=== PATIENT | female | born 1980 ===

== ENCOUNTER 2019-01-08 17:11 | Emergency (ER) | payer SELFPAY ==
--- NOTE | 2019-01-08 17:34 | Emergency Department Report ---
Blank Doc - Documentation Documentation: 38-year-old female that presents with n/v, weakness, and headache. Denies any abdominal pain. Denies worst headaches or thunderclarp headaches. This initial assessment/diagnostic orders/clinical plan/treatment(s) is/are subject to change based on patient's health status, clinical progression and re- assessment by fellow clinical providers in the ED. Further treatment and workup at subsequent clinical providers discretion. Patient/guardians urged not to elope from the ED as their condition may be serious if not clinically assessed and managed. Initial orders include: 1- Patient sent to [facility] for further evaluation and treatment 2- labs 3- UA
[2019-01-08 18:19] LABS: Bacteria,Urine 1+ /HPF (Negative); Bilirubin,Urine NEG (Negative); Blood,Urine NEG (Negative); Color,Urine Yellow (Yellow); Mucus,Urine FEW /HPF; Protein,Urine <15 mg/dL mg/dL (Negative); Urobilinogen,Urine < 2.0 mg/dL (<2.0)
[2019-01-08 19:08] LABS: Alanine Aminotransferase 20 units/L (7-56); Albumin 4.6 g/dL (3.9-5); BUN/Creatinine Ratio 26; Blood Urea Nitrogen 13 mg/dL (7-17); Calcium 9.1 mg/dL (8.4-10.2); Hemolysis Index 9
[2019-01-08 19:11] LABS: Basophils % (Auto) 0.4 % (0.0-1.8); Eosinophils % (Auto) 0.5 % (0.0-4.3); Hematocrit 38.6 % (30.3-42.9); Hemoglobin 12.9 gm/dl (10.1-14.3); Lymphocytes # (Auto) 1.9 K/mm3 (1.2-5.4); Lymphocytes % (Auto) 27.1 % (13.4-35.0); Mean Corpuscular HGB Conc 33 % (30-34); Mean Corpuscular Volume 92 fl (79-97); Monocytes # (Auto) 0.4 K/mm3 (0.0-0.8); Monocytes % (Auto) 5.9 % (0.0-7.3); Platelet Count 286 K/mm3 (140-440); Red Cell Distribution Width 14.2 % (13.2-15.2)
[2019-01-08] MEDS ORDERED: ZOFRAN ODT PO ONE (19:56)
[2019-01-08] MEDS ORDERED: NACL 0.9% 1000 ML 1,000 ML IV ONE ×2 (20:02→20:57)
[2019-01-08] MEDS ORDERED: ZOFRAN IV ONE (20:06)
--- NOTE | 2019-01-08 20:45 | Emergency Department Report ---
ED General Adult HPI - General Chief complaint: Abdominal Pain Stated complaint: VOMITING Time Seen by Provider: 01/08/19 17:31 Source: patient Mode of arrival: Ambulatory Limitations: No Limitations - History of Present Illness Initial comments: Patient is a 38-year-old female presents emergency room with complaints of nausea and vomiting that began last week. She has associated headache, Lightheadedness, urinary frequency, odor to her urine. she states she has chest pressure but denies any CP. the patient denies any fever, diarrhea, abdominal pa in, dysuria, vaginal discharge. She is Able to tolerate by mouth intake. She has a past surgical history of cholecystectomy. She denies any allergies medications. patient states her last mental cycle December 27. pt states that her only medical history is high cholesterol and was just started on medication three days ago. she denies any other medication, denies taking anyone else medications, denies herbs or supplements. she denies any issues with her thyroid. - Related Data Previous Rx's Medication Instructions Recorded Last Taken Type cephALEXin [Keflex] 500 mg PO BID 7 Days #14 capsule 01/09/19 Unknown Rx Allergies Allergy/AdvReac Type Severity Reaction Status Date / Time No Known Allergies Allergy Unverified 01/08/19 17:38 ED Review of Systems ROS: Stated complaint: VOMITING Other details as noted in HPI Comment: All other systems reviewed and negative ED Past Medical Hx - Past Medical History Previous Medical History?: No - Surgical History Past Surgical History?: No - Social History Smoking Status: Never Smoker Substance Use Type: None - Medications Home Medications: Home Medications Medication Instructions Recorded Confirmed Last Taken Type cephALEXin [Keflex] 500 mg PO BID 7 Days #14 capsule 01/09/19 Unknown Rx ED Physical Exam - General Limitations: No Limitations General appearance: alert, in no apparent distress - Head Head exam: Present: atraumatic, normocephalic - Eye Eye exam: Present: normal appearance, PERRL, EOMI - ENT ENT exam: Present: mucous membranes moist - Respiratory Respiratory exam: Present: normal lung sounds bilaterally. Absent: respiratory distress, wheezes, rales, rhonchi, stridor, chest wall tenderness, accessory muscle use, decreased breath sounds, prolonged expiratory - Cardiovascular Cardiovascular Exam: Present: regular rate, normal rhythm, normal heart sounds. Absent: systolic murmur, diastolic murmur, rubs, gallop - GI/Abdominal GI/Abdominal exam: Present: soft, normal bowel sounds. Absent: distended, tenderness, guarding, rebound, rigid - Back Exam Back exam: Absent: CVA tenderness (R), CVA tenderness (L) - Neurological Exam Neurological exam: Present: alert, oriented X3, CN II-XII intact, normal gait. Absent: motor sensory deficit - Psychiatric Psychiatric exam: Present: normal affect, normal mood - Skin Skin exam: Present: warm, dry, intact ED Course Vital Signs 01/08/19 01/08/19 01/08/19 17:36 20:03 20:44 Temperature 97.9 F 98.5 F Pulse Rate 48 L 49 L 44 L Respiratory 18 16 15 Rate Blood Pressure 105/97 Blood Pressure 89/46 [Right] O2 Sat by Pulse 99 100 Oximetry 01/08/19 01/08/19 01/08/19 20:46 21:00 21:16 Temperature Pulse Rate 40 L 43 L 40 L Respiratory 13 11 L 13 Rate Blood Pressure 101/55 92/49 Blood Pressure [Right] O2 Sat by Pulse 99 100 100 Oximetry 01/08/19 01/08/19 01/08/19 21:57 22:00 22:16 Temperature Pulse Rate 37 L 37 L 39 L Respiratory 11 L 9 L 11 L Rate Blood Pressure 101/55 101/55 100/52 Blood Pressure [Right] O2 Sat by Pulse 100 100 100 Oximetry 01/08/19 01/08/19 01/08/19 22:30 22:46 23:00 Temperature Pulse Rate 39 L 38 L 41 L Respiratory 9 L 11 L 13 Rate Blood Pressure 100/52 100/52 100/52 Blood Pressure [Right] O2 Sat by Pulse 100 100 100 Oximetry 01/08/19 01/08/19 01/08/19 23:15 23:16 23:31 Temperature Pulse Rate 38 L 39 L 51 L Respiratory 9 L 10 L 15 Rate Blood Pressure 111/67 110/68 110/68 Blood Pressure [Right] O2 Sat by Pulse 99 100 100 Oximetry 01/08/19 01/09/19 01/09/19 23:45 00:00 00:15 Temperature Pulse Rate 39 L 37 L 40 L Respiratory 13 9 L 10 L Rate Blood Pressure 107/64 113/65 106/60 Blood Pressure [Right] O2 Sat by Pulse 100 100 99 Oximetry 01/09/19 01/09/19 00:30 00:45 Temperature Pulse Rate 42 L 39 L Respiratory 10 L 11 L Rate Blood Pressure 108/58 107/59 Blood Pressure [Right] O2 Sat by Pulse 99 99 Oximetry - Reevaluation(s) Reevaluation #1: 01/09/19 00:38 pt states she feels much, much better - Consultations Consultation #1: 01/09/19 00:[address] Ross Vasquez, cardiology regarding pt and asymptomatic bradycardia who states pt can follow up as an outpatient in clinic ED Medical Decision Making - Lab Data Result diagrams: 01/08/19 18:28 01/08/19 18:27 Lab Results 01/08/19 01/08/19 01/08/19 Range/Units 18:27 18:28 18:28 WBC 6.8 (4.5-11.0) K/mm3 RBC 4.20 (3.65-5.03) M/mm3 Hgb 12.9 (10.1-14.3) gm/dl Hct 38.6 (30.3-42.9) % MCV 92 (79-97) fl MCH 31 (28-32) pg MCHC 33 (30-34) % RDW 14.2 (13.2-15.2) % Plt Count 286 (140-440) K/mm3 Lymph % (Auto) 27.1 (13.4-35.0) % Bailey % (Auto) 5.9 (0.0-7.3) % Eos % (Auto) 0.5 (0.0-4.3) % Baso % (Auto) 0.4 (0.0-1.8) % Lymph # 1.9 (1.2-5.4) K/mm3 Bailey # 0.4 (0.0-0.8) K/mm3 Eos # 0.0 (0.0-0.4) K/mm3 Baso # 0.0 (0.0-0.1) K/mm3 Seg Neutrophils % 66.1 (40.0-70.0) % Seg Neutrophils # 4.5 (1.8-7.7) K/mm3 Sodium 138 (137-145) mmol/L Potassium 4.6 (3.6-5.0) mmol/L Chloride 101.8 (98-107) mmol/L Carbon Dioxide 23 (22-30) mmol/L Anion Gap 18 mmol/L BUN 13 (7-17) mg/dL Creatinine 0.5 L (0.7-1.2) mg/dL Estimated GFR > 60 ml/min BUN/Creatinine Ratio 26 % Glucose 113 H (65-100) mg/dL Calcium 9.1 (8.4-10.2) mg/dL Magnesium (1.7-2.3) mg/dL Total Bilirubin 0.40 (0.1-1.2) mg/dL AST 18 (5-40) units/L ALT 20 (7-56) units/L Alkaline Phosphatase 66 (35-129) units/L Total Creatine Kinase (30-135) units/L Troponin T (0.00-0.029) ng/mL Total Protein 7.6 (6.3-8.2) g/dL Albumin 4.6 (3.9-5) g/dL Albumin/Globulin Ratio 1.5 % Lipase 8 L (13-60) units/L TSH (0.270-4.200) mlU/mL Free T4 (0.76-1.46) ng/dL HCG, Qual Negative (Negative) Urine Color (Yellow) Urine Turbidity (Clear) Urine pH (5.0-7.0) Ur Specific Grimes (1.003-1.030) Urine Protein (Negative) mg/dL Urine Glucose (UA) (Negative) mg/dL Urine Ketones (Negative) mg/dL Urine Blood (Negative) Urine Nitrite (Negative) Urine Bilirubin (Negative) Urine Urobilinogen (<2.0) mg/dL Ur Leukocyte Esterase (Negative) Urine WBC (Auto) (0.0-6.0) /HPF Urine RBC (Auto) (0.0-6.0) /HPF U Epithel Cells (Auto) (0-13.0) /HPF Urine Bacteria (Auto) (Negative) /HPF Urine Mucus /HPF 01/08/19 01/08/19 01/08/19 Range/Units 18:28 20:56 21:04 WBC (4.5-11.0) K/mm3 RBC (3.65-5.03) M/mm3 Hgb (10.1-14.3) gm/dl Hct (30.3-42.9) % MCV (79-97) fl MCH (28-32) pg MCHC (30-34) % RDW (13.2-15.2) % Plt Count (140-440) K/mm3 Lymph % (Auto) (13.4-35.0) % Bailey % (Auto) (0.0-7.3) % Eos % (Auto) (0.0-4.3) % Baso % (Auto) (0.0-1.8) % Lymph # (1.2-5.4) K/mm3 Bailey # (0.0-0.8) K/mm3 Eos # (0.0-0.4) K/mm3 Baso # (0.0-0.1) K/mm3 Seg Neutrophils % (40.0-70.0) % Seg Neutrophils # (1.8-7.7) K/mm3 Sodium (137-145) mmol/L Potassium (3.6-5.0) mmol/L Chloride (98-107) mmol/L Carbon Dioxide (22-30) mmol/L Anion Gap mmol/L BUN (7-17) mg/dL Creatinine (0.7-1.2) mg/dL Estimated GFR ml/min BUN/Creatinine Ratio % Glucose (65-100) mg/dL Calcium (8.4-10.2) mg/dL Magnesium 2.30 (1.7-2.3) mg/dL Total Bilirubin (0.1-1.2) mg/dL AST (5-40) units/L ALT (7-56) units/L Alkaline Phosphatase (35-129) units/L Total Creatine Kinase (30-135) units/L Troponin T < 0.010 (0.00-0.029) ng/mL Total Protein (6.3-8.2) g/dL Albumin (3.9-5) g/dL Albumin/Globulin Ratio % Lipase (13-60) units/L TSH 0.857 (0.270-4.200) mlU/mL Free T4 0.96 (0.76-1.46) ng/dL HCG, Qual (Negative) Urine Color (Yellow) Urine Turbidity (Clear) Urine pH (5.0-7.0) Ur Specific Grimes (1.003-1.030) Urine Protein (Negative) mg/dL Urine Glucose (UA) (Negative) mg/dL Urine Ketones (Negative) mg/dL Urine Blood (Negative) Urine Nitrite (Negative) Urine Bilirubin (Negative) Urine Urobilinogen (<2.0) mg/dL Ur Leukocyte Esterase (Negative) Urine WBC (Auto) (0.0-6.0) /HPF Urine RBC (Auto) (0.0-6.0) /HPF U Epithel Cells (Auto) (0-13.0) /HPF Urine Bacteria (Auto) (Negative) /HPF Urine Mucus /HPF 01/08/19 01/08/19 Range/Units 21:10 Unknown WBC (4.5-11.0) K/mm3 RBC (3.65-5.03) M/mm3 Hgb (10.1-14.3) gm/dl Hct (30.3-42.9) % MCV (79-97) fl MCH (28-32) pg MCHC (30-34) % RDW (13.2-15.2) % Plt Count (140-440) K/mm3 Lymph % (Auto) (13.4-35.0) % Bailey % (Auto) (0.0-7.3) % Eos % (Auto) (0.0-4.3) % Baso % (Auto) (0.0-1.8) % Lymph # (1.2-5.4) K/mm3 Bailey # (0.0-0.8) K/mm3 Eos # (0.0-0.4) K/mm3 Baso # (0.0-0.1) K/mm3 Seg Neutrophils % (40.0-70.0) % Seg Neutrophils # (1.8-7.7) K/mm3 Sodium (137-145) mmol/L Potassium (3.6-5.0) mmol/L Chloride (98-107) mmol/L Carbon Dioxide (22-30) mmol/L Anion Gap mmol/L BUN (7-17) mg/dL Creatinine (0.7-1.2) mg/dL Estimated GFR ml/min BUN/Creatinine Ratio % Glucose (65-100) mg/dL Calcium (8.4-10.2) mg/dL Magnesium (1.7-2.3) mg/dL Total Bilirubin (0.1-1.2) mg/dL AST (5-40) units/L ALT (7-56) units/L Alkaline Phosphatase (35-129) units/L Total Creatine Kinase 68 (30-135) units/L Troponin T (0.00-0.029) ng/mL Total Protein (6.3-8.2) g/dL Albumin (3.9-5) g/dL Albumin/Globulin Ratio % Lipase (13-60) units/L TSH (0.270-4.200) mlU/mL Free T4 (0.76-1.46) ng/dL HCG, Qual (Negative) Urine Color Yellow (Yellow) Urine Turbidity Slightly-cloudy (Clear) Urine pH 7.0 (5.0-7.0) Ur Specific Grimes 1.015 (1.003-1.030) Urine Protein <15 mg/dl (Negative) mg/dL Urine Glucose (UA) Neg (Negative) mg/dL Urine Ketones Neg (Negative) mg/dL Urine Blood Neg (Negative) Urine Nitrite Pos (Negative) Urine Bilirubin Neg (Negative) Urine Urobilinogen < 2.0 (<2.0) mg/dL Ur Leukocyte Esterase Sm (Negative) Urine WBC (Auto) 4.0 (0.0-6.0) /HPF Urine RBC (Auto) 1.0 (0.0-6.0) /HPF U Epithel Cells (Auto) 12.0 (0-13.0) /HPF Urine Bacteria (Auto) 1+ (Negative) /HPF Urine Mucus Few /HPF - EKG Data EKG shows normal: sinus rhythm, axis, intervals, QRS complexes Rate: bradycardia - EKG Data 01/09/19 00:09 non specific T wave inversion V1, V2, aVL no STEMI - Radiology Data Radiology results: report reviewed CHEST 2 VIEWS INDICATION / CLINICAL INFORMATION: bradycardia, chest pressure. COMPARISON: None available. FINDINGS: SUPPORT DEVICES: None. HEART / MEDIASTINUM: No significant abnormality. LUNGS / PLEURA: No significant pulmonary or pleural abnormality. No pneumothorax. ADDITIONAL FINDINGS: No significant additional findings. IMPRESSION: 1. No acute findings. Signer Name: Jamal White MD Signed: 01/08/2019 9:58 PM Workstation Name: [id number] Transcribed By: ALEE Dictated By: Jamal White MD Electronically Authenticated By: Jamal White MD Signed Date/Time: 10/2157 - Medical Decision Making Patient is a 38-year-old female presents emergency room with complaints of nausea and vomiting that began last week. She has associated headache, Lightheadedness, urinary frequency, odor to her urine. she states she has chest pressure but denies any CP. the patient denies any fever, diarrhea, abdominal pain, dysuria, vaginal discharge. She is Able to tolerate by mouth intake. She has a past surgical history of cholecystectomy. She denies any allergies medications. patient states her last mental cycle December 27. pt states that her only medical history is high cholesterol and was just started on medication three days ago. she denies any other medication, denies taking anyone else medications, denies herbs or supplements. she denies any issues with her thyroid. vitals with bradycardia and hypotension, pt given 2L of NS and blood pressure improved to normal. labs are normal, electrolytes are normal, thyroid p micaela is normal. UA shows nitrites, leukocyte esterase, and 1+ WBC, pt given 1gram of ceftriaxone. hcg is negative. EKG with non specific T wave inversion V1, V2, aVL, no STEMI, bradycardia. no signs of heart block on EKG. pt states she feels much better. pt has no more N/V. pt was walked around the emergency department and had no dizziness/lightheadedness. Spoke with Dr. Ross Vasquez, cardiology regarding pt and asymptomatic bradycardia who states pt can follow up as an outpatient in clinic. pt given prescription for keflex. advised pt to please take medication as prescribed to completion. please increase your water intake over the next several days. Follow-up with a online merchandising specialist and a primary care doctor in the next 2-3 days. Return to the emergency room immediately for any new or worsening symptoms. Lan security used for turkmen translation for history and physical language line used for turkmen translation to discuss results and to psychosocial rehabilitation counselor patient - Differential Diagnosis arrhythmia, heart block, thyroid dz, SSS, electrolyte disturbance, UTI Critical care attestation.: If time is entered above; I have spent that time in minutes in the direct care of this critically ill patient, excluding procedure time. ED Disposition Clinical Impression: Lightheadedness, Bradycardia Nausea & vomiting Qualifiers: Vomiting type: unspecified Vomiting Intractability: non-intractable Qualified Code(s): R11.2 - Nausea with vomiting, unspecified UTI (urinary tract infection) Qualifiers: Urinary tract infection type: acute cystitis Hematuria presence: without hematuria Qualified Code(s): N30.00 - Acute cystitis without hematuria Disposition: TO HOME OR SELFCARE Is pt being admited?: No Does the pt Need Aspirin: No Condition: Stable Instructions: Urinary Tract Infection in Women (ED), Bradycardia (ED), Lightheadedness (ED) Additional Instructions: Please take medication as prescribed to completion. please increase your water intake over the next several days. Follow-up with a online merchandising specialist and a primary care doctor in the next 2-3 days. Return to the emergency room immediately for any new or worsening symptoms. Por favor tome la medicacin segn lo prescrito para completar aumente dorsey consumo de agua nick los prximos leahy. Nilsa un seguimiento con un cardilogo y un mdico de atencin primaria en los prximos 2-3 leahy. Regrese a la shiva de emergencias de inmediato por cualquier sntoma nuevo o que empeore. Prescriptions: cephALEXin [Keflex] 500 mg PO BID 7 Days #14 capsule Referrals: NATE VASQUEZ MD [Staff Physician] - 2-3 Days PRIMARY CARE, [Primary Care Provider] - 2-3 Days Time of Disposition: 00:41 Print Language: SYRIAC
[2019-01-08] MEDS ORDERED: ROCEPHIN/NS 1 GM/50 ML 1 GM/50 ML BAG IV ONE (20:53)
[2019-01-08 22:02] LABS: Free T4 (Free Thyroxine) 0.96 ng/dL (0.76-1.46)
--- NOTE | 2019-01-08 22:03 | XRay Report ---
CHEST 2 VIEWS INDICATION / CLINICAL INFORMATION: bradycardia, chest pressure. COMPARISON: None available. FINDINGS: SUPPORT DEVICES: None. HEART / MEDIASTINUM: No significant abnormality. LUNGS / PLEURA: No significant pulmonary or pleural abnormality. No pneumothorax. ADDITIONAL FINDINGS: No significant additional findings. IMPRESSION: 1. No acute findings. Signer Name: Jamal White MD Signed: 01/08/2019 9:58 PM Workstation Name: [id number]
[2019-01-09 00:52] VITALS: BP 107/59
== END 2019-01-09 00:57 | disposition home or self-care (01) ==
LOC: ED 17:11
DX: N39.0 Urinary tract infection, site not specified (principal); R11.2 Nausea with vomiting, unspecified; R00.1 Bradycardia, unspecified; Z79.899 Other long term (current) drug therapy
CPT/HCPCS: 36415; 71046; 80053; 81001; 82550; 83690; 83735; 84439; 84443; 84484; 84703; 85025; 93005; 93010; 96365; 96375; 99284; J0696; J2405; J7030

== ENCOUNTER 2019-10-30 13:53 | Emergency (ER) | payer SELFPAY ==
[2019-10-30 14:02] VITALS: BP 122/82
--- NOTE | 2019-10-30 15:10 | Emergency Department Report ---
ED General Adult HPI - General Chief complaint: Fever Stated complaint: SIDE PAIN, THROAT PAIN Time Seen by Provider: 10/30/19 15:09 Source: patient Mode of arrival: Ambulatory Limitations: Language Barrier - History of Present Illness Initial comments: 39-year-old female patient presents with complaints of body aches and chills starting 6 days ago and sore throat x3 days ago. She denies any cough, vomiting, chest pain, shortness of breath, rash, or diarrhea. Patient also denies any known sick contacts. She rates her current throat pain as a 6/10 in severity and states it is mildly improving since its onset. She denies any significant past medical history. - Related Data Previous Rx's Medication Instructions Recorded Last Taken Type cephALEXin [Keflex] 500 mg PO BID 7 Days #14 capsule 01/09/19 Unknown Rx Ondansetron [Zofran Odt] 4 mg PO Q8HR PRN #12 tab.rapdis 10/30/19 Unknown Rx Allergies Allergy/AdvReac Type Severity Reaction Status Date / Time No Known Allergies Allergy Verified 10/30/19 13:54 ED Review of Systems ROS: Stated complaint: SIDE PAIN, THROAT PAIN Other details as noted in HPI Constitutional: chills, fever (Tactile), malaise. denies: diaphoresis, weakness ENT: throat pain Respiratory: denies: cough, shortness of breath Cardiovascular: denies: chest pain Gastrointestinal: nausea. denies: abdominal pain, vomiting, diarrhea, constipation Genitourinary: denies: urgency, dysuria, frequency, hematuria Musculoskeletal: denies: back pain Skin: denies: rash, lesions Neurological: denies: headache, weakness ED Past Medical Hx - Past Medical History Previous Medical History?: No - Surgical History Past Surgical History?: No - Social History Smoking Status: Never Smoker Substance Use Type: None - Medications Home Medications: Home Medications Medication Instructions Recorded Confirmed Last Taken Type cephALEXin [Keflex] 500 mg PO BID 7 Days #14 capsule 01/09/19 Unknown Rx Ondansetron [Zofran Odt] 4 mg PO Q8HR PRN #12 tab.rapdis 10/30/19 Unknown Rx ED Physical Exam - General Limitations: Language Barrier General appearance: alert, in no apparent distress - Head Head exam: Present: atraumatic, normocephalic - Eye Eye exam: Present: normal appearance - ENT ENT exam: Present: normal orophraynx, mucous membranes moist - Expanded ENT Exam Expanded Mouth exam: Present: tongue normal. Absent: drooling, trismus, muffled voice Throat exam: Negative: tonsillar erythema, tonsillomegaly - Neck Neck exam: Present: full ROM, lymphadenopathy (Mild submandibular/anterior tenderness to lymph nodes noted without significant swelling of lymph node). Absent: meningismus - Respiratory Respiratory exam: Present: normal lung sounds bilaterally. Absent: respiratory distress - Cardiovascular Cardiovascular Exam: Present: regular rate, normal rhythm. Absent: systolic murmur, diastolic murmur, rubs, gallop - GI/Abdominal GI/Abdominal exam: Present: soft, normal bowel sounds. Absent: distended, tenderness, guarding, rebound, rigid - Extremities Exam Extremities exam: Present: normal inspection - Back Exam Back exam: Present: normal inspection - Neurological Exam Neurological exam: Present: alert, oriented X3 - Psychiatric Psychiatric exam: Present: normal affect, normal mood - Skin Skin exam: Present: warm, dry, intact, normal color. Absent: rash ED Course Vital Signs 10/30/19 14:00 Temperature 97.9 F Pulse Rate 73 Respiratory 18 Rate Blood Pressure 122/82 O2 Sat by Pulse 99 Oximetry ED Medical Decision Making - Radiology Data Patient here with complaints of tactile fever, body aches/chills, nausea, and throat pain. Her exam is benign. Rapid strep is negative. Patient symptoms and presentation are consistent with viral syndrome, however COVID-19 cannot be ruled out. Patient provided with list of outpatient testing sites for COVID-19 and informed to self quarantine until she has her test results back. Patient also provided with Dr. Palafox of referral and informed to follow-up on her strep test results in 3 days. Her vitals are normal, she is well-appearing, and stable for discharge home. Strict return precautions were discussed in detail with patient who verbalizes understanding. Critical care attestation.: If time is entered above; I have spent that time in minutes in the direct care of this critically ill patient, excluding procedure time. ED Disposition Clinical Impression: Viral syndrome, Acute viral pharyngitis Disposition: MED SCREENING EXAM-LEFT Is pt being admited?: No Condition: Stable Instructions: Viral Syndrome (ED), COVID-19 Prescriptions: Ondansetron [Zofran Odt] 4 mg PO Q8HR PRN #12 tab.rapdis PRN Reason: Nausea Referrals: EDI PALAFOX MD [Staff Physician] - 3-5 Days Forms: Work/School Release Form(ED) Print Language: MOLDOVAN
== END 2019-10-30 17:16 | disposition left against medical advice (07) ==
LOC: ED 13:53
DX: R07.0 Pain in throat (principal); Z53.21 Procedure and treatment not carried out due to patient leaving prior to being seen by health care provider
CPT/HCPCS: 87116; 87430